=== PATIENT | female | born 1990 | race Caucasian/White ===

== ENCOUNTER 2016-09-24 13:27 | Emergency (ER) | payer OTHER ==
[~2016-09-24] VITALS: Wt 47.6 kg
[~2016-09-24 13:27] MED LIST: AMOXICILLIN500 MG PO; ANAPROX DS550 MG PO; CIPROFLOXACIN500 MG PO; FLAGYL500 MG PO; FLEXERIL10 MG PO; IBUPROFEN 30 M800 MG PO; MACROBID100 M1 PO; MOTRIN800 MG PO; NAPROSYN500 MG PO; NKHM; PERCOCET 325 MG1 TA7 PO; PREDNICOT20 MG PO; PRENATAL1 TA1 PO; PRENATAL1 TA3 PO; TRAMADOL HCL50 MG PO; VICODIN 5/500 505 MG PO; ZOFRAN4 MG PO
[2016-09-24] MEDS ORDERED: Peridex 473 ML473 ML PO (13:50)
[2016-09-24] MEDS ORDERED: CLINDAMYCIN150 MG PO (13:50)
[2016-09-24] MEDS ORDERED: NAPROSYN500 MG PO (13:50)
== END 2016-09-24 14:17 | disposition home or self-care (01) ==
LOC: ED 13:27
DX: K04.7 Periapical abscess without sinus (principal); F17.200 Nicotine dependence, unspecified, uncomplicated

== ENCOUNTER 2017-05-17 14:11 | Emergency (ER) | payer OTHER ==
[~2017-05-17] VITALS: Ht 162.5 cm; Wt 52.2 kg
[~2017-05-17 14:11] MED LIST changes: +CLINDAMYCIN150 MG PO; +Peridex 473 ML473 ML PO
[2017-05-17] MEDS ORDERED: OMNICEF300 MG PO ×2 (15:13→15:32)
== END 2017-05-17 14:50 | disposition home or self-care (01) ==
LOC: ED 14:11
DX: H65.93 Unspecified nonsuppurative otitis media, bilateral (principal); J02.0 Streptococcal pharyngitis; F17.200 Nicotine dependence, unspecified, uncomplicated

== ENCOUNTER 2017-08-21 07:26 | Emergency (ER) | payer OTHER ==
[~2017-08-21] VITALS: Ht 162.5 cm; Wt 50.3 kg
[~2017-08-21 07:26] MED LIST changes: +OMNICEF300 MG PO
[2017-08-21 07:51] LABS: BASO % 0.3 % (0.0-1.0); EOS # 0.1 10*3/uL (0.0-0.4); EOS % 2.1 % (1.0-4.0); HEMATOCRIT 44.2 % (37.0-47.0); HEMOGLOBIN 14.1 g/dl (12.0-16.0); LYMPH # 1.3 10*3/uL (1.3-4.4); LYMPH % 21.3 % (27.0-41.0); MEAN CELL VOLUME 92.9 fl (81.0-99.0); MEAN CORPUSCULAR HGB 29.6 pg (27.0-31.0); MEAN CORPUSCULAR HGB CONC 31.9 g/dl (33.0-37.0); MEAN PLATELET VOLUME 11.5 fl (9.6-12.3); MONO # 0.4 10*3/uL (0.1-1.0); MONO % 6.7 % (3.0-9.0); NEUT # 4.3 10*3/uL (2.3-7.9); NEUT % 69.3 % (47.0-73.0); PLATELET COUNT AUTOMATED 195 10*3/uL (130-400); RED BLOOD COUNT 4.76 10*6/uL (4.10-5.10); RED CELL DISTRI WIDTH 13.8 % (0-14.5); WHITE BLOOD COUNT 6.3 10*3/uL (4.8-10.8)
[2017-08-21 08:08] LABS: ALKALINE PHOSPHATASE 52 U/L (45-117); BUN 18 mg/dl (7-24); CHLORIDE 110 mmol/L (98-107); CREATININE 0.65 mg/dL (0.55-1.02); POTASSIUM 3.8 mmol/L (3.5-5.1); SGOT/AST 11 IU/L (3-35); SGPT/ALT 21 U/L (12-78); SODIUM 142 mmol/L (136-145); TOTAL PROTEIN 7.2 gm/dL (6.4-8.2)
[2017-08-21 08:15] LABS: TROPONIN I < 0.015 ng/ml (<0.045)
== END 2017-08-21 09:20 | disposition home or self-care (01) ==
LOC: ED 07:26
PROVIDERS: Emergency Medicine
DX: R42 Dizziness and giddiness (principal)

== ENCOUNTER 2017-10-02 08:47 | Emergency (ER) | payer OTHER ==
[~2017-10-02] VITALS: Ht 162.5 cm; Wt 50.8 kg
[2017-10-02] MEDS ORDERED: Tobrex Ophth S2.5 ML OPH (09:11)
== END 2017-10-02 09:17 | disposition home or self-care (01) ==
LOC: ED 08:47
DX: S05.01XA Injury of conjunctiva and corneal abrasion without foreign body, right eye, initial encounter (principal); W50.4XXA Accidental scratch by another person, initial encounter; Y93.89 Activity, other specified; Y92.89 Other specified places as the place of occurrence of the external cause; Y99.8 Other external cause status

== ENCOUNTER → 2017-10-21 | Outpatient (CLI) | payer OTHER ==
[~2017-10-21] MED LIST changes: +Tobrex Ophth S2.5 ML OPH
[2017-10-21 16:26] LABS: HEMATOCRIT 43.3 % (37.0-47.0); HEMOGLOBIN 13.6 g/dl (12.0-16.0); MEAN CELL VOLUME 93.9 fl (81.0-99.0); MEAN CORPUSCULAR HGB 29.5 pg (27.0-31.0); MEAN CORPUSCULAR HGB CONC 31.4 g/dl (33.0-37.0); MEAN PLATELET VOLUME 11.5 fl (9.6-12.3); RED BLOOD COUNT 4.61 10*6/uL (4.10-5.10); RED CELL DISTRI WIDTH 13.3 % (0-14.5); WHITE BLOOD COUNT 10.2 10*3/uL (4.8-10.8)
[2017-10-21 16:32] LABS: URINE AMPHETAMINES < 1000 (1000ng/ml); URINE BARBITURATES < 200 (200ng/ml); URINE BENZODIAZEPINES < 200 (200ng/ml); URINE CANNABINOIDS (THC) < 50 (50ng/ml); URINE COCAINE < 300 (300ng/ml); URINE METHADONE < 300 (300ng/ml); URINE OPIATES < 300 (300ng/ml)
[2017-10-21 16:36] LABS: URINE PHENCYCLIDINE < 25 (25ng/ml)
[2017-10-21 16:38] LABS: ALBUMIN 4.2 gm/dl (3.1-4.5); ALKALINE PHOSPHATASE 65 U/L (45-117); BUN 11 mg/dl (7-24); CHLORIDE 104 mmol/L (98-107); CHOLESTEROL 167 mg/dL (<200); HDL CHOLESTEROL 58 mg/dl (40-60); LDL CHOLESTEROL 95 mg/dL (9-159); POTASSIUM 3.8 mmol/L (3.5-5.1); SGOT/AST 11 IU/L (3-35); SGPT/ALT 21 U/L (12-78); SODIUM 139 mmol/L (136-145); TOTAL PROTEIN 7.6 gm/dL (6.4-8.2); TRIGLYCERIDES 72 mg/dl (<150); VLDL CHOLESTEROL 14 mg/dL (6-40)
[2017-10-22 15:06] LABS: VARICELLA-ZOSTER IGG 096206 3609 index (Immune >165)
== END | disposition home or self-care (01) ==
LOC: LAB 16:04
PROVIDERS: Family Medicine
DX: Z13.220 Encounter for screening for lipoid disorders (principal); R53.83 Other fatigue

== ENCOUNTER 2017-11-27 12:19 | Emergency (ER) | payer OTHER ==
[~2017-11-27] VITALS: Ht 162.5 cm; Wt 50.3 kg
[2017-11-27] MEDS ORDERED: Tobrex Ophth S2.5 ML OPH (12:47)
== END 2017-11-27 13:01 | disposition home or self-care (01) ==
LOC: ED 12:19
DX: S05.01XA Injury of conjunctiva and corneal abrasion without foreign body, right eye, initial encounter (principal); W22.8XXA Striking against or struck by other objects, initial encounter; Y93.89 Activity, other specified; Y92.89 Other specified places as the place of occurrence of the external cause; Y99.8 Other external cause status

== ENCOUNTER 2019-11-19 09:05 | Emergency (ER) | payer OTHER ==
[~2019-11-19] VITALS: Ht 162.5 cm; Wt 68.5 kg
[2019-11-19 09:51] LABS: BILIRUBIN NEGATIVE; BLOOD TRACE-INTACT (NEGATIVE); CLARITY CLOUDY (CLEAR); COLOR YELLOW (YELLOW); GLUCOSE NEGATIVE; KETONE NEGATIVE; SPECIFIC GRAVITY 1.015 (1.005-1.030)
[2019-11-19 09:52] LABS: LEUKO ESTERASE TRACE (NEGATIVE); NITRITE NEGATIVE (NEGATIVE); UROBILINOGEN 0.2 E.U./dl (0.2-1.0)
[2019-11-19 09:56] LABS: BACTERIA 1+; EPITHELIAL CELLS 16-20; RBC 0-2 rbc/hpf (0-2)
== END 2019-11-19 10:14 | disposition home or self-care (01) ==
LOC: ED 09:05
PROVIDERS: Nurse Practitioner Family
DX: Z03.89 Encounter for observation for other suspected diseases and conditions ruled out (principal); F17.200 Nicotine dependence, unspecified, uncomplicated; Z79.899 Other long term (current) drug therapy

== ENCOUNTER 2019-12-15 11:33 | Emergency (ER) | payer OTHER ==
[~2019-12-15] VITALS: Ht 162.5 cm; Wt 70.3 kg
[2019-12-15] MEDS ORDERED: Tobrex Ophth S2.5 ML OPH (12:52)
== END 2019-12-15 13:22 | disposition home or self-care (01) ==
LOC: ED 11:33
DX: S05.01XA Injury of conjunctiva and corneal abrasion without foreign body, right eye, initial encounter (principal); Z79.899 Other long term (current) drug therapy; X58.XXXA Exposure to other specified factors, initial encounter; Y93.89 Activity, other specified; Y92.89 Other specified places as the place of occurrence of the external cause; Y99.8 Other external cause status

== ENCOUNTER 2020-12-04 09:49 | Emergency (ER) | payer OTHER ==
[~2020-12-04] VITALS: Wt 62.1 kg
== END 2020-12-04 10:13 | disposition left against medical advice (07) ==
LOC: ED 09:49
DX: J02.9 Acute pharyngitis, unspecified (principal); Z53.21 Procedure and treatment not carried out due to patient leaving prior to being seen by health care provider

== ENCOUNTER 2021-05-18 12:51 | Emergency (ER) | payer OTHER ==
[~2021-05-18] VITALS: Ht 162.5 cm; Wt 63.5 kg
[2021-05-18 13:36] LABS: BASO % 0.3 % (0.0-1.0); EOS % 0.5 % (1.0-4.0); HEMATOCRIT 46.3 % (37.0-47.0); LYMPH # 1.3 10*3/uL (1.3-4.4); LYMPH % 17.8 % (27.0-41.0); MEAN CELL VOLUME 95.5 fl (81.0-99.0); MEAN CORPUSCULAR HGB 31.3 pg (27.0-31.0); MEAN CORPUSCULAR HGB CONC 32.8 g/dl (33.0-37.0); MEAN PLATELET VOLUME 11.2 fl (9.6-12.3); MONO # 0.6 10*3/uL (0.1-1.0); MONO % 7.6 % (3.0-9.0); NEUT # 5.5 10*3/uL (2.3-7.9); NEUT % 73.5 % (47.0-73.0); PLATELET COUNT AUTOMATED 228 10*3/uL (130-400); RED BLOOD COUNT 4.85 10*6/uL (4.10-5.10); RED CELL DISTRI WIDTH 13.3 % (0-14.5); WHITE BLOOD COUNT 7.5 10*3/uL (4.8-10.8)
[2021-05-18 13:54] LABS: ALBUMIN 3.7 gm/dl (3.1-4.5); ALKALINE PHOSPHATASE 68 U/L (45-117); BUN 13 mg/dl (7-24); CHLORIDE 108 mmol/L (98-107); CREATININE 0.69 mg/dL (0.55-1.02); POTASSIUM 3.6 mmol/L (3.5-5.1); SGOT/AST 17 IU/L (3-35); SGPT/ALT 22 U/L (12-78); SODIUM 140 mmol/L (136-145); TOTAL PROTEIN 7.5 gm/dL (6.4-8.2)
[2021-05-18 14:13] LABS: BILIRUBIN Negative (Negative); BLOOD 1+ (Negative); CLARITY Clear (Clear); COLOR Yellow (Yellow); GLUCOSE Negative (Negative); KETONE Trace (Negative); LEUKO ESTERASE 1+ (Negative); NITRITE Negative (Negative); PH 6.5 (4.5-8.0); SPECIFIC GRAVITY 1.025 (1.001-1.030)
[2021-05-18 14:34] LABS: BACTERIA 1+; MUCOUS 1+
[2021-05-18] MEDS ORDERED: METRONIDAZOLE500 M1 PO (14:53)
[2021-05-20] MEDS ORDERED: METRONIDAZOLE500 M1 PO (10:31)
== END 2021-05-18 15:05 | disposition home or self-care (01) ==
LOC: ED 12:51
PROVIDERS: Physician Assistant
DX: O46.91 Antepartum hemorrhage, unspecified, first trimester (principal); O98.811 Other maternal infectious and parasitic diseases complicating pregnancy, first trimester; A59.9 Trichomoniasis, unspecified; Z3A.01 Less than 8 weeks gestation of pregnancy

== ENCOUNTER 2021-05-22 08:33 | Emergency (ER) | payer OTHER ==
[~2021-05-22] VITALS: Wt 63.5 kg
[~2021-05-22 08:33] MED LIST changes: +METRONIDAZOLE500 M1 PO
[2021-05-22 09:03] LABS: BASO % 0.3 % (0.0-1.0); EOS % 0.6 % (1.0-4.0); HEMATOCRIT 42.5 % (37.0-47.0); LYMPH # 1.2 10*3/uL (1.3-4.4); LYMPH % 17.8 % (27.0-41.0); MEAN CORPUSCULAR HGB 30.4 pg (27.0-31.0); MEAN CORPUSCULAR HGB CONC 32.7 g/dl (33.0-37.0); MEAN PLATELET VOLUME 11.2 fl (9.6-12.3); MONO # 0.5 10*3/uL (0.1-1.0); MONO % 7.1 % (3.0-9.0); NEUT # 5.1 10*3/uL (2.3-7.9); NEUT % 73.8 % (47.0-73.0); PLATELET COUNT AUTOMATED 238 10*3/uL (130-400); RED BLOOD COUNT 4.57 10*6/uL (4.10-5.10); RED CELL DISTRI WIDTH 13.3 % (0-14.5); WHITE BLOOD COUNT 6.9 10*3/uL (4.8-10.8)
[2021-05-22 09:19] LABS: ALKALINE PHOSPHATASE 60 U/L (45-117); BUN 11 mg/dl (7-24); CHLORIDE 111 mmol/L (98-107); CREATININE 0.63 mg/dL (0.55-1.02); LIPASE 51 U/L (73-393); POTASSIUM 3.7 mmol/L (3.5-5.1); SGOT/AST 10 IU/L (3-35); SGPT/ALT 19 U/L (12-78); SODIUM 139 mmol/L (136-145); TOTAL PROTEIN 6.9 gm/dL (6.4-8.2)
== END 2021-05-22 11:14 | disposition home or self-care (01) ==
LOC: ED 08:33
PROVIDERS: Emergency Medicine
DX: O20.0 Threatened abortion (principal); Z3A.01 Less than 8 weeks gestation of pregnancy

== ENCOUNTER 2023-03-28 10:22 | Emergency (ER) | payer OTHER | END 2023-03-28 13:06 | disposition left against medical advice (07) | LOC: ED 10:22 | DX: H61.22 Impacted cerumen, left ear (principal); R42 Dizziness and giddiness; Z53.21 Procedure and treatment not carried out due to patient leaving prior to being seen by health care provider ==

== ENCOUNTER 2023-05-21 09:06 | Emergency (ER) | payer OTHER ==
[~2023-05-21] VITALS: Wt 62.1 kg
[2023-05-21] MEDS ORDERED: SODIUM CHLORIDE 0.9% 1,000 ML IV ONE (09:35)
[2023-05-21] MEDS ORDERED: Ondansetron Hydrochloride 4 MG/2 ML VIAL IV ONE (09:35)
[2023-05-21 10:35] LABS: HEMATOCRIT 42.1 % (37.0-47.0); MEAN CELL VOLUME 91.1 fl (81.0-99.0); MEAN CORPUSCULAR HGB 28.8 pg (27.0-31.0); MEAN CORPUSCULAR HGB CONC 31.6 g/dl (33.0-37.0); MEAN PLATELET VOLUME 11.4 fl (9.6-12.3); PLATELET COUNT AUTOMATED 201 10*3/uL (130-400); RED BLOOD COUNT 4.62 10*6/uL (4.10-5.10); RED CELL DISTRI WIDTH 14.8 % (0-14.5); WHITE BLOOD COUNT 10.8 10*3/uL (4.8-10.8)
[2023-05-21 10:37] LABS: MANUAL DIFF REFLEX YES
[2023-05-21 10:57] LABS: ALKALINE PHOSPHATASE 64 U/L (46-116); BUN 13 mg/dl (9-23); CHLORIDE 107 mmol/L (98-107); LIPASE 25 U/L (12-53); PLATELET SUFFICIENCY NORMAL (NORMAL); POTASSIUM 3.8 mmol/L (3.4-5.1); SGPT/ALT 10 U/L (5-49); TOTAL CELLS COUNTED 100 #CELLS; TOTAL PROTEIN 6.2 gm/dL (6.0-8.0)
[2023-05-21 10:58] LABS: B-hCG (QUALITATIVE) NEGATIVE (NEGATIVE)
[2023-05-21] MEDS ORDERED: ONDANSETRON4 MG SL (11:28)
== END 2023-05-21 11:35 | disposition home or self-care (01) ==
LOC: ED 09:06
PROVIDERS: Internal Medicine
DX: B34.9 Viral infection, unspecified (principal); Z20.822 Contact with and (suspected) exposure to COVID-19; R11.2 Nausea with vomiting, unspecified; R19.7 Diarrhea, unspecified; R10.9 Unspecified abdominal pain; Z98.890 Other specified postprocedural states